=== PATIENT | male | born 1990 | race Hispanic/Latino ===

== ENCOUNTER → 2023-03-11 | Outpatient (CLI) | payer OTHER | END | disposition home or self-care (01) | LOC: RAH 13:38 | PROVIDERS: ATTEND Internal Medicine Cardiovascular Disease | DX: Z13.6 Encounter for screening for cardiovascular disorders (principal) | CPT/HCPCS: 75571 ==

== ENCOUNTER 2025-01-11 03:49 | Emergency (ER) | payer BC ==
[~2025-01-11] VITALS: Ht 172.7 cm; Wt 79.4 kg
[~2025-01-11 03:49] MED LIST: AMOX1TAB16 PO; BENZ-39 PO; PRED10 PO
[2025-01-11] MEDS: 0.9%NACL 1000ML 1,000 ML IV ONE (04:42)
[2025-01-11] MEDS: ketOROlac 30MG VIAL (30MG/ML) IVP ONE (04:42)
[2025-01-11 04:51] LABS: BASOPHILS # (AUTO) 0.05 K/uL (0.00-0.20); BASOPHILS % (AUTO) 0.4 % (0.0-5.0); EOSINOPHILS # (AUTO) 0.18 K/uL (0.00-0.70); EOSINOPHILS % (AUTO) 1.5 % (0.0-8.0); HEMATOCRIT 43.8 % (42-54); IMMATURE GRANULOCYTE ABSOLUTE 0.06 K/uL (0-1); LYMPHOCYTES # (AUTO) 2.5 K/uL (1.0-4.8); LYMPHOCYTES % (AUTO) 21.5 % (21.0-51.0); MEAN CORPUSCULAR HEMOGLOBIN 27.1 pg (27.0-33.0); MEAN CORPUSCULAR HGB CONC 33.1 g/dL (32.0-36.0); MEAN CORPUSCULAR VOLUME 81.7 fL (79-99); MONOCYTES # (AUTO) 0.9 K/uL (0.1-1.0); MONOCYTES % (AUTO) 7.5 % (3.0-13.0); NEUTROPHILS # (AUTO) 8.1 K/uL (1.8-7.7); NEUTROPHILS % (AUTO) 68.6 % (40.0-77.0); PLATELET COUNT (AUTO) 305 K/uL (130-400); RED BLOOD CELL COUNT(AUTO) 5.36 MIL/uL (4.50-6.20); RED CELL DISTRIBUTION WIDTH 14.6 % (11.0-15.5); WHITE BLOOD COUNT (AUTO) 11.7 K/uL (4.8-10.8)
--- NOTE | 2025-01-11 05:02 | ERN ---
ED Note History of Present Illness Stated Complaint: FLANK PAIN Chief Complaint: Flank Pain Time Seen by MD: 03:54 Time Seen by Midlevel: 03:54 Dictation: The patient is a 34-year-old male with history of pneumonia , plaque psoriasis who presents to the emergency department with complaints of right flank pain onset 2:00 a.m.. Patient denies any nausea or vomiting, denies any hematuria, denies any trauma, Constipation or diarrhea. Patient reports he was seen here two weeks ago and was diagnosed with a ammonia currently on Levaquin. Allergies: Coded Allergies: No Known Allergies (Unverified Allergy, Unknown, 12/23/24) Home Meds Active Scripts Cyclobenzaprine HCl (Flexeril) 10 Mg Tab, 10 MG PO TID for muscle sstiffness, #14 TAB 0 Refills Prov:REMINGTON CORREA [employer]AP [employer] SORTER 01/11/25 Ibuprofen (Ibuprofen) 600 Mg Tablet, 600 MG PO Q6H PRN for PAIN, #10 TAB Prov:REMINGTON CORREA [employer]ORTER 01/11/25 Prednisone (Deltasone/Orasone) 10 Mg Tab, 10 TAB PO BID for 5 Days, #4 TAB 0 Refills One tab every day for the next 3 days Half tab on day 4 and day 5 Prov:EDITH GOLDEN MD 12/27/24 Benzonatate (Tessalon Perles) 100 Mg Cap, 1 CAP PO TID for cough for 10 Days, #30 CAP 0 Refills Prov:EDITH GOLDEN MD 12/27/24 Amoxicillin/Potassium Clav (Amox Tr-K Clv 875-125 mg Tab) 875 Mg-125 Mg Tablet, 1 TAB PO BID for 7 Days, #14 TAB 0 Refills Prov:EDITH GOLDEN MD 12/27/24 Past Medical History Past Medical History: No Pertinent History Additional Past Medical Hx: PLAQUE PSORIASIS, ARRHYTHMIA Surgical History: None Surgical History Other: ABD RN Note Reviewed/Agreed w/PFSH: Yes Review of System Dictation Constitutional: Negative for fever,chills, and weight loss Eyes: Negative for injury, pain,redness, and discharge ENT: Negative for injury,pain or swelling Cardiovascular: Negative for chest pain, palpitations, and edema Respiratory: Negative for shortness of breath, cough, and wheezing, Abdomen/GI: Negative for abdominal pain, nausea, vomiting, diarrhea, and constipation Back: Negative for injury, positive for right flank pain : Negative for injury, bleeding and discharge MS/Extremity: Negative for injury and deformity Skin: Negative for rash, and discoloration Neuro: Negative for headache, weakness, numbness, tingling, and seizure Psych: Negative for suicide ideation, homicidal ideation, and hallucinations Initial Vital Sign VS Vital Signs Date Time Temp Pulse Resp B/P (MAP) Pulse Ox O2 Delivery O2 Flow Rate FiO2 01/11/25 04:26 98.4 94 18 135/90 97 Room Air* 0 21 Physical Exam Dictation Vital Signs reviewed General Appearance: Alert, oriented x 3, no acute distress, well developed, nourished. Head and Face: non-traumatic. Eyes: PERRL, pink conjunctivas, eyelid no trauma, anterior chamber with arcus senilis. Ears: Pinnas intact and no signs of trauma or erythema ear canals clear and no discharge TM no erythema Nose: No discharge, no bleeding. Oropharynx: Mouth normal, tongue pink. pharynx clear,no erythema, tonsils no exudates, no abscesses noted, mucous membrane moist Neck: Supple, non-tender, no thyromegaly, no masses, no JVD, no bruits Breast:Deferred Chest:No tenderness, no crepitus, no paradoxical movement, no retractions Lungs:Clear, well-ventilated, symmetric, no rales, no wheezing, no rhonchi, no stridor, good breath sounds bilaterally Heart: Regular rate, regular rhythm, no murmur, no gallops Vascular: no peripheral edema, Abdomen: Soft, positive bowel sounds, nondistended, no guarding, nontender, no rebound, no masses no hepatomegaly, no splenomegaly, no Domingo's sign, no hernias. Rectal: Deferred Genital: Deferred Neurological: Normal speech, motor function intact, sensory function intact Musculoskeletal: Neck nontender, full range of motion, back nontender, full range of motion, right flank tenderness Extremities: nontender, full range of motion Skin: Color pink, dry, no turgor, no rash, no lacerations, no abrasions, no contusions. Lymphatic: Deferred Results (Laboratory/Radiology) Laboratory/Radiology Labs Reviewed?: Yes ED Course ED Course Medical Decision Making MDM The patient is a 34-year-old male with history of pneumonia who presents to the emergency department with complaints of right flank pain onset 2:00 a.m.. Patient denies any nausea or vomiting, denies any hematuria, denies any trauma, Constipation or diarrhea. Patient reports he was seen here two weeks ago and was diagnosed with a ammonia currently on Levaquin. CBC showed mild leukocytosis, trending down from previous visits, no anemia, chemistry showed no electrolyte imbalance, normal renal function, urinalysis unremarkable, CT abdomen showed no acute pathology. Patient reports improving in pain with medication treatment. Reports he has been having this pain even when he was admitted and was told it was muscular. Patient no acute distress. Will be discharged to follow up with PCP. Patient agrees to discharge planning. Differential diagnosis: UTI, pyelonephritis, kidney stone, muscle strain Need for hospitalization: Patient does not meet criteria for hospitalization. There are no social concerns with this patient. DX & DISP Disposition: Discharge Departure Impression: Primary Impression: Right flank pain Additional Impression: Muscle strain Condition: Stable Scripts Cyclobenzaprine HCl (Flexeril) 10 Mg Tab 10 MG PO TID for muscle sstiffness, #14 TAB 0 Refills Prov: REMINGTON CORREA [employer]TER 01/11/25 Ibuprofen (Ibuprofen) 600 Mg Tablet 600 MG PO Q6H PRN for PAIN, #10 TAB Prov: REMINGTON CORREA [employer]TER 01/11/25 Additional Instructions: Please follow up with the primary doctor in 1-2 days. Please return to ER if symptoms worsen. FOLLOW-UP WITH PRIMARY CARE PROVIDER IN 1 TO 2 DAYS. TAKE MEDICATIONS DIRECTED HERE IN THE EMERGENCY ROOM. OKAY TO CONTINUE HOME MEDICATIONS UNLESS OTHERWISE DISCUSSED DURING YOUR VISIT IN THE EMERGENCY ROOM TODAY. RETURN TO YOUR NEAREST EMERGENCY ROOM IF SYMPTOMS WORSEN OR IF THERE IS NO IMPROVEMENT. CALL 911 IF YOU NEED IMMEDIATE ASSISTANCE. TAKE TYLENOL OR MOTRIN [id number] NEEDED AND IF NO CONTRAINDICATIONS ARE PRESENT. INCREASE ORAL HYDRATION. A WOUND CULTURE OR URINE CULTURE WAS ORDERED HERE IN THE EMERGENCY ROOM DEPARTMENT PLEASE FOLLOW-UP WITH PRIMARY CARE PROVIDER AND ADVISE THEM TO GET REPEAT PORTS FROM OUR FACILITY. IF YOU HAD ANY RISHI WRAP/SPLINTS THAT WERE APPLIED HERE, PLEASE DO NOT REMOVE THEM UNTIL YOU SEE YOUR PRIMARY CARE OR SPECIALTY. Referrals: WERNER OLMSTEAD (PCP) Time of Disposition: 06:19 I have reviewed the case, and I agree with, Diagnosis and Plan I performed the substantive portion of the visit. I have reviewed and personally made and approve the management plan that is documented in the notes by myself or the ERVIN. I acknowledge full responsibility for the patient's management plan. REMINGTON CORREA Jan 11, 2025 05:01 KAREN HAYES MD Jan 18, 2025 11:18
[2025-01-11 05:06] LABS: POTASSIUM 3.8 mmol/L (3.5-5.1)
[2025-01-11 05:38] LABS: APPEARANCE,URINE CLEAR (CLEAR); BILIRUBIN,URINE NEGATIVE (NEGATIVE); COLOR,URINE COLORLESS (YELLOW); GLUCOSE, URINE (UA) NEGATIVE (NEGATIVE); KETONES,URINE NEGATIVE (NEGATIVE); LEUKOCYTE ESTERASE ,URINE NEGATIVE Leu/uL (NEGATIVE); NITRATE,URINE NEGATIVE (NEGATIVE); OCCULT BLOOD,URINE NEGATIVE (NEGATIVE); PROTEIN,URINE NEGATIVE (NEGATIVE); UROBILINOGEN,URINE 0.2 mg/dL (0.2-1.0)
[2025-01-11 05:49] LABS: ADD UA MICROSCOPIC NO
[2025-01-11] MEDS ORDERED: IBUP-2070 PO (06:20)
[2025-01-11] MEDS ORDERED: CYCL10TA16 PO (06:20)
[2025-01-11 06:45] VITALS: BP 120/82; PULSE 77; RESP 17; TEMP 98.4; O2SAT 98
--- NOTE | 2025-01-11 09:32 | HMCIMG ---
CT ABDOMEN/PELVIS W/O CONTRAST HISTORY: Renal stone COMPARISON: 12/24/2024 TECHNIQUE: Multiple sequential axial images of the abdomen and pelvis were obtained from the dome of the diaphragm through symphysis pubis. Patient was not given contrast through intravenous route. Oral contrast was not given. FINDINGS: No pleural effusion is seen bilaterally. There is no evidence of parenchymal disease or pulmonary nodule of the visualized lower lungs. Degenerative changes of the thoracolumbar spine are present. The heart is not enlarged. Liver measures 15.4 cm. The liver, spleen, adrenal glands and pancreas are unremarkable. There is no evidence of hydronephrosis bilaterally. No evidence of renal stone is seen. Fecal material is seen in the colon. There are normal size retroperitoneal and mesenteric lymph nodes. No ascites is seen. No CT evidence of acute appendicitis is seen. There is diverticulosis. Pelvic sidewalls are symmetric bilaterally. Bladder is well distended without wall thickening. IMPRESSION: 1. No CT evidence of acute appendicitis is seen. CT was performed with one or more following dose reduction techniques: automated exposure control, adjustment of the mA and kv according to patient's size, or use of a iterative reconstruction technique.
== END 2025-01-11 06:46 | disposition home or self-care (01) ==
LOC: EDH 03:49
DX: S39.011A Strain of muscle, fascia and tendon of abdomen, initial encounter (principal); R10.9 Unspecified abdominal pain; Z79.52 Long term (current) use of systemic steroids; X58.XXXA Exposure to other specified factors, initial encounter; Y93.89 Activity, other specified; Y92.89 Other specified places as the place of occurrence of the external cause; Y99.8 Other external cause status
CPT/HCPCS: 99284; 74176; 96374; 96361; 80048; 85025; 81003; 36415; J1885; J7030